=== PATIENT | female | born 1975 | race Caucasian/White ===

== ENCOUNTER 2019-10-11 14:06 | Emergency (ER) | payer BC ==
[~2019-10-11] VITALS: Ht 165.1 cm; Wt 86.2 kg
[2019-10-11 14:15] VITALS: BP_SYST 138
--- NOTE | 2019-10-11 14:19 | NUR ---
Patient to ER bed 04 to gown for evaluation. Side rails up.
--- NOTE | 2019-10-11 14:45 | NUR ---
ER Dr. Schuler at bedside examining patient.
[2019-10-11] MEDS ORDERED: PREDNISONE 20 MG TABLET PO ONE (15:00)
[2019-10-11 15:05] VITALS: BP_SYST 138
--- NOTE | 2019-10-11 15:05 | NUR ---
Patient given written and verbal discharge instructions and verbalizes understanding. ER MD discussed with patient the results and treatment provided. Patient in stable condition. ID arm band removed. Rx of steroid given. Patient educated on pain management and to follow up with PMD. Pain Scale 3/10 tolerable for patient. Opportunity for questions provided and answered. Medication side effect fact sheet provided.
--- NOTE | 2019-10-13 14:24 | NUR ---
Pt brought by self, A&Ox4, pt presents to ER with swelling on face after a botox injection yesterday, afebrile, skin pink and warm, cap refill <3.
--- NOTE | 2019-10-13 15:05 | NUR ---
Note undone in EDM - 10/13/19 at 1900 by SDEDTD Patient given written and verbal discharge instructions and verbalizes understanding. ER discussed with patient the results and treatment provided. Patient in stable condition. ID arm band removed. Rx of steroid given. Patient educated on pain management and to follow up with PMD. Pain Scale 3/10 tolerable for patient. Opportunity for questions provided and answered. Medication side effect fact sheet provided.
== END 2019-10-11 14:19 | disposition home or self-care (01) ==
LOC: SED 14:06
DX: T78.1XXA Other adverse food reactions, not elsewhere classified, initial encounter (principal); X58.XXXA Exposure to other specified factors, initial encounter
CPT/HCPCS: 99283; J7030; J7512